=== PATIENT | female | born 1950 | race Caucasian/White ===

== ENCOUNTER 2019-12-10 10:34 | Inpatient (IN) | payer OTHER ==
[2019-11-29 12:39] LABS: HEMATOCRIT 40.2 % (37.0-47.0); HEMOGLOBIN 12.9 gm/dL (12.0-15.0); MCH 25.4 pg (26.0-34.0); MCV 79.2 fL (80.0-100.0); RBC 5.07 mil/uL (4.20-5.00)
[2019-11-29 12:43] LABS: ALBUMIN 3.7 g/dL (3.4-5.0); CALCIUM 10.1 mg/dL (8.5-10.1); CREATININE 1.2 mg/dL (0.6-1.0); POTASSIUM 4.2 mmol/L (3.5-5.1)
[2019-11-29 12:51] LABS: INR 1.1; PROTIME 10.9 Seconds (9.3-11.4)
[2019-11-29 13:03] LABS: URINE BILIRUBIN NEGATIVE (Negative); URINE BLOOD NEGATIVE (Negative); URINE CLARITY CLEAR; URINE COLOR YELLOW; URINE GLUCOSE-RANDOM* NEGATIVE (Negative); URINE KETONES NEGATIVE (Negative); URINE LEUKOCYTES-REFLEX TRACE (Negative); URINE NITRITE-REFLEX NEGATIVE (Negative); URINE PROTEIN (DIPSTICK) NEGATIVE (Negative); URINE UROBILINOGEN 0.2 E.U./dl (0.2-1.0)
--- NOTE | 2019-11-29 13:34 | EKG ---
[place] [address] [facility] [employer] [place] [address] ELECTROCARDIOGRAM REPORT Name: HANY HERNANDEZ Room #: PRE IN [facility]#: [id number] Admission: Attend Phys: Aristides Hoff MD Discharge: Date of : 52 Report #: [id number] THIS REPORT FOR: //name// [facility] Test Date: 2019-11-29 Test Time: 12:28:12 Pat Name: HANY HERNANDEZ Department: Room: Gender: F [employer] Worker: Javed CHOI : 1950 Requested By: Aristides Hoff Order Number: [id number] MD: Moise Torres Measurements Intervals Madeline Rate: 79 P: 2 AR: 146 QRS: -58 QRSD: 90 T: 5 QT: 370 QTc: 425 Interpretive Statements Sinus rhythm Ventricular premature complex Poor R wave progression No previous ECG available for comparison Electronically Signed On 11-29-2019 13:33:35 TOOTH GRINDER by Moise Torres [email or web address] <ELECTRONICALLY SIGNED> By: Moise Torres MD, [facility] 11/29/19 1333 1228 1228 Moise Torres MD, FACC /EPI
[2019-11-30 02:06] LABS: GLYCOHEMOGLOBIN (HGB A1C) 7.4 % (4.8-5.6)
[~2019-12-10] VITALS: Ht 152.4 cm; Wt 83.5 kg
--- NOTE | ~2019-12-10 | O ---
[facility] [place] [address] OPERATIVE REPORT Name: HANY HERNANDEZ Room #: 439-P ADM IN M.R.#: [id number] Admission: 12/10/19 Attend Phys: Aristides Hoff MD Discharge: Date of : 52 Report #: [id number] THIS REPORT FOR: //name// CC: Fransico Hoff DATE OF SERVICE: 12/10/2019 PREOPERATIVE DIAGNOSIS: Right knee osteoarthritis. POSTOPERATIVE DIAGNOSIS: Right knee osteoarthritis. PROCEDURE: Right total knee arthroplasty using Navio robotic assistance. SURGEON: Aristides Hoff MD. FAST FOOD SUPERVISOR: Lacie Tom PA-C. INDICATIONS FOR FAST FOOD SUPERVISOR: Throughout the case, extensive retraction and manipulation of the knee was required. This was afforded to me by my community relations assistant. ANESTHESIA: LMA with an adductor canal block. IMPLANTS: [employer] size 4 narrow Legion cobalt chrome posterior stabilized femur, a size 3 tibia, size 9 polyethylene, size 29 patella. TOURNIQUET TIME: 56 minutes. ESTIMATED BLOOD LOSS: 25 mL. COMPLICATIONS: None. SPECIMENS: None. CONDITION UPON LEAVING THE OPERATING ROOM: Stable. INDICATIONS FOR PROCEDURE: The patient is a 69-year-old female with severe right knee osteoarthritis. She had failed conservative measures for this and after discussion with her, she elected for right total knee arthroplasty. DESCRIPTION OF PROCEDURE: Risks, benefits, alternatives, complications were discussed in detail with the patient including but not limited to risk of anesthesia, risk of damage to nerves, arteries, blood vessels, risk for infection, bleeding, risk for continued knee pain, need for reoperation. Informed consent was obtained from the patient. Right knee was appropriately marked in the preoperative holding area. IV Ancef was given for preoperative [address] [address] OPERATIVE REPORT Name: HANY HERNANDEZ Room #: 439-P [facility] IN M.R.#: [id number] Admission: 12/10/19 Attend Phys: Aristides Hoff MD Discharge: Date of : 52 Report #: [id number] antibiotics. Adductor canal block was placed by Anesthesia. She was brought to the operating room and placed in the supine position on the operating room table. LMA anesthesia was induced without complication. Tourniquet was placed on the right thigh. Right lower extremity was prepped and draped in normal sterile fashion. Timeout was performed properly identifying the patient and procedure as well as the instrumentation and implants. All in the operating room were in agreement. Right lower extremity was exsanguinated, tourniquet was inflated. Tourniquet time was 56 minutes. Standard midline approach to knee was made with 10 blade through the skin. Dissection was taken down sharply to the fascia and deep flaps were developed medially and laterally. Fresh 10 blade was used to make a medial parapatellar arthrotomy and the knee was inspected. There was severe medial compartment osteoarthritis with moderate lateral and patellofemoral osteoarthritis. ACL and PCL were removed sharply. Reference pins were placed in the femur and the tibia and the knee was then digitally mapped using the [employer] robotic system. Intraoperative plan was made and we sized the size 4 femur with a size 3 tibia and an 11 spacer. After acceptance of the intraoperative plan, the distal femoral cut was made with a Navio latisha. The 4-in-1 cutting block was pinned in place using the Navio for placement and distal femoral cuts were made. After this, attention was turned to the tibia. The remainder of the menisci removed with Bovie cautery. Tibial resection guide was pinned in place using the Navio for placement and tibial resection was made. Medial osteophytes were removed from the tibia. Flexion and extension gaps were checked and found to have good balance in extension with tightness medially in flexion. Limited medial release was performed in flexion using the pie crust technique. This balanced the knee well. After this, the tibia was sized, found to be a size 3. A size 3 tibial trial was placed, pinned and punched. A size 4 femoral trial was placed and box cut was made. This was then trialed with a size 9 polyethylene. Knee was taken through range of motion, found to have 1-2 millimeter of laxity medially and laterally throughout range of motion both digitally as well as manually. A 9 mm was resected from the posterior surface of the patella and a size 29 patellar trial button was placed. Knee was taken through range of motion, found to have good patellar tracking. After this, trial components were removed. Bony ends were thoroughly irrigated with normal saline. Final size 3 tibia, size 4 Legion narrow cobalt chrome posterior stabilized femur, and a size 29 patella were cemented in place using standard cementation techniques. While the cement cured, a periarticular injection consisting of morphine, ropivacaine, epinephrine, Toradol was placed around the knee joint capsule. After the cement cured, the tourniquet was deflated. Hemostasis was obtained with Bovie cautery. Final size 9 polyethylene was placed. A gram of vancomycin was placed deep in the joint. The fascia was closed with 0 Vicryl, skin was closed with 2-0 Vicryl, 3-0 Monocryl. Dermabond [address] [address] OPERATIVE REPORT Name: HANY HERNANDEZ Room #: 439-P [facility] IN M.R.#: [id number] Admission: 12/10/19 Attend Phys: Aristides Hoff MD Discharge: Date of : 52 Report #: [id number] and a SANAM dressing was applied. The patient tolerated this procedure well and went to recovery room under care of anesthesia postoperatively. By: 1658 1828 Aristides Hoff MD /nt
[~2019-12-10 10:34] MED LIST: GLUMETZA500 PO; KLOR-CON 1010 MEQ PO; LEVOXYL112 MCG PO; LOSARTAN-HCTZ1 EAC3 PO; MELOXICAM15 MG PO; OMEPRAZOLE40 MG PO; ROSUVASTATIN CA20 MG PO
[2019-12-10 12:01] VITALS: BP 141/69
[2019-12-10 19:40] VITALS: BP 130/64
--- NOTE | 2019-12-11 01:41 | NUR ---
ASSESSMENT COMPLETED. PT S/P RIGHT TKA. SANAM DRSG AND POLAR ANITA IN PLACE. PT URINATING OKAY. DENIES NAUSEA SO FAR. PAIN AT A 3/10, GIVEN SCHEDULED MORPHINE-NO FURTHER COMPLAINS.IV FLUIDS AND IV ABTS INFUSED. AFEBRILE.NO FURTHER CONCERNS.
[2019-12-11 04:25] VITALS: BP 99/51
[2019-12-11 06:10] LABS: HEMATOCRIT 35.6 % (37.0-47.0); HEMOGLOBIN 11.3 gm/dL (12.0-15.0); MCH 25.1 pg (26.0-34.0); MCHC 31.6 g/dL (28.0-37.0); MCV 79.4 fL (80.0-100.0); RBC 4.48 mil/uL (4.20-5.00); RDW 16.1 % (10.5-14.5); WBC 19.5 thou/uL (4.0-11.0)
[2019-12-11 08:12] VITALS: BP 118/58
--- NOTE | 2019-12-11 10:19 | NUR ---
INITIAL ASSESSMENT: Pt evaluated for d/c planning needs. Reviewed chart and spoke with nurse and pt. Pt is alert and oriented. Pt lives in house with spouse and was independent with ADL's prior to admission to the hospital. Pt said she has no DME and has not had home health. Pt has scheduled outpatient PT at [facility] in [place]. Referral sent to [facility] to deliver walker for home use. Pt plans on discharging home today.
--- NOTE | 2019-12-11 11:59 | NUR ---
PT CARE ASSUMED AT 0700. A&Ox4. SANAM DRESSING IN PLACE WITH NO BLEEDING, POLAR PACK IN PLACE. SCD'S AND ANATOLY HOSES IN PLACE. PT UP IN RECLINER. PAIN MANAGED WITH MEDICATION. ACHS IN PLACE WITH COVERAGE NECESSARY. IV PATENT WITH NO REDNESS OR SWELLING. PT UP WITH GA[facility]ELT AND A WALKER. POSSIBLE DISCHARGE TODAY AFTER ORTHO SEES PT. BED IN LOW POSITION, LOCKED WITH BED ALARM IN PLACE. FLUIDS INFUSING DC AFTER THIS BAG.
[2019-12-11 12:47] VITALS: BP 97/49
[2019-12-11] MEDS ORDERED: ASPIR 8181 MG PO (12:47)
[2019-12-11] MEDS ORDERED: NEURONTIN 300300 M1 PO (12:47)
[2019-12-11 12:57] VITALS: BP 97/49
== END 2019-12-11 16:24 | disposition home or self-care (01) | DRG 470 ==
LOC: TBA 10:34 → 4S 10:34 → TBA 11:43 → PRE 12:35 → TBA 12:56 → 4S 15:58 → ENTRNSPT 12-11 16:08 → 4S 12-11 16:24
PROVIDERS: ADMIT Orthopaedic Surgery
PROC: 0SRC0J9 Replacement of Right Knee Joint with Synthetic Substitute, Cemented, Open Approach (ICD-10-PCS; principal; 2019-12-10)
PROC: 8E0Y0CZ Robotic Assisted Procedure of Lower Extremity, Open Approach (ICD-10-PCS; principal; 2019-12-10)
DX: M17.11 Unilateral primary osteoarthritis, right knee (principal); Z68.41 Body mass index [BMI] 40.0-44.9, adult; E66.01 Morbid (severe) obesity due to excess calories; E11.9 Type 2 diabetes mellitus without complications; E03.9 Hypothyroidism, unspecified; I10 Essential (primary) hypertension; E78.5 Hyperlipidemia, unspecified; K21.9 Gastro-esophageal reflux disease without esophagitis; R63.1 Polydipsia; R35.0 Frequency of micturition; Z79.899 Other long term (current) drug therapy
CPT/HCPCS: 10102; 50010; 50101; 50415; 50954; 51130; 51225; 51320; 52001; 52282; 53000; 53078; 53364; 54118; 56527; 56528; 57095; 57103; 57110; 57127; 62110; 62900; 70005

== ENCOUNTER → 2020-01-14 | Outpatient (CLI) | payer OTHER ==
[~2020-01-14] MED LIST changes: +ASPIR 8181 MG PO; +NEURONTIN 300300 M1 PO
== END ==
LOC: SJCVCIMAG 11:02 → SJCVC 11:02
DX: I08.2 Rheumatic disorders of both aortic and tricuspid valves (principal); I21.19 ST elevation (STEMI) myocardial infarction involving other coronary artery of inferior wall; R94.31 Abnormal electrocardiogram [ECG] [EKG]; I10 Essential (primary) hypertension; E11.9 Type 2 diabetes mellitus without complications; E78.5 Hyperlipidemia, unspecified; K21.9 Gastro-esophageal reflux disease without esophagitis; Z79.899 Other long term (current) drug therapy

== ENCOUNTER → 2020-09-11 | Outpatient (CLI) | payer OTHER | LOC: SJCVC 13:35 | PROVIDERS: ATTEND Internal Medicine Cardiovascular Disease | DX: R94.31 Abnormal electrocardiogram [ECG] [EKG] (principal); I10 Essential (primary) hypertension; I35.1 Nonrheumatic aortic (valve) insufficiency; E78.00 Pure hypercholesterolemia, unspecified; E11.9 Type 2 diabetes mellitus without complications; Z79.899 Other long term (current) drug therapy ==

== ENCOUNTER → 2021-03-23 | Outpatient (CLI) | payer OTHER | LOC: SJCVCIMAG 09:17 | PROVIDERS: ATTEND Internal Medicine Cardiovascular Disease | DX: I35.1 Nonrheumatic aortic (valve) insufficiency (principal); E78.5 Hyperlipidemia, unspecified ==

== ENCOUNTER → 2021-12-29 | Outpatient (CLI) | payer OTHER | LOC: SJCVC 10:01 | PROVIDERS: ATTEND Internal Medicine Cardiovascular Disease | DX: I35.0 Nonrheumatic aortic (valve) stenosis (principal); I10 Essential (primary) hypertension; E78.00 Pure hypercholesterolemia, unspecified; R94.31 Abnormal electrocardiogram [ECG] [EKG]; E11.9 Type 2 diabetes mellitus without complications; Z79.82 Long term (current) use of aspirin; Z79.899 Other long term (current) drug therapy; Z88.8 Allergy status to other drugs, medicaments and biological substances; Z82.49 Family history of ischemic heart disease and other diseases of the circulatory system ==